=== PATIENT | male | born 1990 | race Caucasian/White ===

== ENCOUNTER 2017-03-08 19:49 | Emergency (ER) | payer BC ==
--- NOTE | ~2017-03-08 | CT4 ---
[facility] A Service of [facility] / [facility] RADIOLOGY TEXT RESULTS PATIENT: LIN CHIRINOS LOCATION: [place] : [birth year] UNIT #: [id number] AGE: [address]: Shorty Thompson MD SEX: M ORDER DR: [id number] [facility] [address] [place], [place] [address] [id number] MR#: [id number] Acc #: [id number] NAME: LIN CHIRINOS : 1990 SEX: M STUDY DATE/TIME: 03/08/2017 20:16 UNIT: [facility] ROOM: STUDY DESCRIPTION: CT Abd and Pelv Wo Cont Attending Physician: Shorty Thompson M.D. Ordering Physician: Shorty Thompson M.D. Primary Care Physician: No Primary Care Physician MEDICAL IMAGING REPORT This report is preliminary unless electronic signature is present EXAM CT abdomen and pelvis without contrast. HISTORY Low abdomen pain and testicular pain for [address] abdomen and pelvis was performed without contrast. This CT exam was performed with one or more of the following radiation dose reduction techniques: automatic exposure control, adjustment of mA and/or kV according to patient size, and iterative reconstruction. FINDINGS CT ABDOMEN: Mild left hydronephrosis and mild left ureteral dilatation. There is a 2 mm nonobstructing stone in the mid-left kidney. No right renal calculi. The liver, gallbladder, spleen, pancreas, and adrenal glands are normal. CT PELVIS: There is a 3 mm obstructing stone at the distal left ureter 1 cm above the ureterovesical junction with mild dilatation of left ureter down to the stone. Urinary bladder is normal. Normal appendix. No free fluid. No bowel dilatation. IMPRESSION 1. 3 mm obstructing stone in the distal left ureter 1 cm above the ureterovesical junction causing mild left hydronephrosis and ureteral dilatation. 2. There is a 2 mm nonobstructing stone in the mid-left kidney. 3. Normal appendix. [facility] A Service of [facility] / [facility] RADIOLOGY TEXT RESULTS PATIENT: LIN CHIRINOS LOCATION: [place] : [birth year] UNIT #: [id number] AGE: [address]: Shorty Thompson MD SEX: M ORDER DR: Dictated by... Han Elizabeth M.D. THIS IS AN ELECTRONICALLY VERIFIED REPORT Han Elizabeth M.D. at 03/09/2017 5:38 PM RAJ/josé TD: 03/09/2017 09:29 JOB #: [id number] MEDICAL IMAGING REPORT Page 1 of 1 COPY
[2017-03-08 22:32] LABS: URINE SOURCE CLEAN CATCH
[2017-03-08 22:36] LABS: URINE APPEARANCE CLEAR; URINE BILIRUBIN NEG (NEG); URINE BLOOD 2+ (NEG); URINE COLOR YELLOW; URINE GLUCOSE NEG (NEG); URINE KETONE NEG (NEG); URINE LEUKOCYTE ESTERASE NEG (NEG); URINE NITRATE NEG (NEG); URINE PROTEIN NEG (NEG); URINE SPECIFIC GRAVITY 1.024 (1.003-1.035); URINE UROBILINOGEN 0.2 MG/DL (NEG)
[2017-03-08 22:38] LABS: CULTURE INDICATED? YES; URBCS1 AUWI 25-50 /[HPF] (0-2); URINE BACTERIA AUWI NEG (NEGATIVE); URINE SQUAMOUS EPITHELIAL CELL FEW /[HPF]
[2017-03-08 22:44] LABS: URINE MUCUS PRESENT
== END 2017-03-08 22:56 | disposition home or self-care (01) ==
LOC: CED 19:49
PROVIDERS: Emergency Medicine
DX: R10.32 Left lower quadrant pain (principal); N50.812 Left testicular pain
CPT/HCPCS: 74176; 81003; 87086; 96372; 99284; J1170